=== PATIENT | female | born 1990 | race Caucasian/White ===

== ENCOUNTER 2021-01-02 16:49 | Inpatient (IN) | payer MEDICAID ==
[~2021-01-02] VITALS: Ht 157.5 cm; Wt 73.9 kg
[2021-01-02 18:17] LABS: BASOPHILS % (AUTO) 0.3 % (0.0-2.0); EOSINOPHILS % (AUTO) 0 % (1.0-6.0); HEMOGLOBIN 11.7 g/dL (12.0-16.0); LYMPHOCYTES # (AUTO) 1.5 K/uL (1.0-4.8); LYMPHOCYTES % (AUTO) 12.6 % (22.0-44.0); MEAN CORPUSCULAR HEMOGLOBIN 26.4 pg (26.0-34.0); MEAN CORPUSCULAR HGB CONC 32.5 G/dL (31.0-37.0); MEAN CORPUSCULAR VOLUME 81 fL (80-100); MONOCYTES # (AUTO) 0.9 K/uL (0.1-1.0); MONOCYTES % (AUTO) 7.3 % (2.0-9.0); NEUTROPHILS # (AUTO) 9.7 K/uL (1.8-7.7); NEUTROPHILS % (AUTO) 79.8 % (40.0-70.0); PLATELET COUNT (AUTO) 313 K/uL (150-450); RED BLOOD CELL COUNT(AUTO) 4.43 MIL/uL (4.00-5.20); RED CELL DISTRIBUTION WIDTH 15.8 % (11.5-14.5)
[2021-01-02 18:59] LABS: ANION GAP 19 mmol/L (8-16); CALCIUM, TOTAL 9.1 mg/dL (8.8-10.5); CARBON DIOXIDE 22 mmol/L (22-29); CHLORIDE 103 mmol/L (98-107); CREATININE 0.99 mg/dL (0.60-1.30); GLOMERULAR FILTR. RATE CALC > 60 mL/min (>60); GLUCOSE,RANDOM 96 mg/dL (70-110); POTASSIUM 3.1 mmol/L (3.5-5.1); SODIUM SERUM 144 mmol/L (136-145); UREA NITROGEN, BLOOD 14 mg/dL (7-18)
[2021-01-02 19:10] LABS: ALANINE AMINOTRANSFERASE 95 U/L (12-78); ALBUMIN 3.8 g/dL (3.4-5.0); ALKALINE PHOSPHATASE 58 U/L (46-116); ASPARTATE AMINOTRANSFERASE 142 U/L (15-37); BILIRUBIN,TOTAL 1.7 mg/dL (0.1-1.0); HCG,QUANTITATIVE < 1 mIU/mL (0-6); TOTAL PROTEIN, SERUM 7.5 g/dL (6.4-8.2)
[2021-01-02] MEDS ORDERED: DiphenhydrAMINE HCL 50 MG/ML VIAL IM ONE (19:30)
[2021-01-02] MEDS ORDERED: LORazepam 2 MG/ML VIAL IM ONE (19:30)
[2021-01-02] MEDS ORDERED: POTASSIUM CHLORIDE 20 MEQ ER TABLET PO ONE (19:30)
[2021-01-02] MEDS ORDERED: HALOPERIDOL LACTATE 5 MG/ML VIAL IM ONE (19:30)
[2021-01-02 19:41] LABS: COVID AG,FIA SOURCE NASOPHARYNGEAL
[2021-01-02] MEDS: ZOLPIDEM TARTRATE 10 MG TABLET PO PRN (22:42)
[2021-01-03 05:00] LABS: CHOL/HDL RATIO 2.7 (3.9-5.7)
[2021-01-03] MEDS: ACETAMINOPHEN 325 MG TABLET PO PRN (12:01)
[2021-01-03 14:32] VITALS: BP 142/84
[2021-01-03 16:26] VITALS: BP 96/60
[2021-01-04 00:10] VITALS: BP 101/65
[2021-01-04] MEDS ORDERED: GuaiFENesin/D-METHORPHAN [SUGAR-FREE] 200-20MG/10 ML SYRUP UDCUP PO PRN (08:15)
[2021-01-04] MEDS ORDERED: ALBUTEROL SULFATE HFA 90 MCG/PUFF 8 GM INHALER IH PRN (08:15)
[2021-01-04] MEDS ORDERED: MAGNESIUM HYDROXIDE SUSPENSION 30 ML UDCUP PO PRN (08:15)
[2021-01-04] MEDS ORDERED: DOCUSATE SODIUM 100 MG CAPSULE PO PRN (08:15)
[2021-01-04] MEDS ORDERED: NICOTINE 14 MG/24 HOUR PATCH TD PRN (08:15)
[2021-01-04] MEDS ORDERED: ONDANSETRON HCL 4 MG TABLET PO PRN (08:15)
[2021-01-04] MEDS ORDERED: IBUPROFEN 400 MG TABLET PO PRN (08:15)
[2021-01-04] MEDS ORDERED: PETROLATUM,WHITE 28 GM JELLY TP PRN (08:15)
[2021-01-04] MEDS ORDERED: LOPERAMIDE HCL 2 MG CAPSULE PO PRN (08:15)
[2021-01-04] MEDS ORDERED: CloNIDine HCL 0.1 MG TABLET PO PRN (08:15)
[2021-01-04] MEDS ORDERED: ACETAMINOPHEN 325 MG TABLET PO PRN (08:15)
[2021-01-04] MEDS ORDERED: MAG HYDROX/AL HYDROX/SIMETH ES 30 ML SUSPENSION UDCUP PO PRN (08:15)
[2021-01-04 08:24] VITALS: BP 102/66
[2021-01-04] MEDS: QUEtiapine FUMARATE 25 MG TABLET PO SCH (10:49)
[2021-01-04] MEDS: QUEtiapine FUMARATE 100 MG TABLET PO SCH (20:43)
[2021-01-05 00:53] VITALS: BP 100/64
[2021-01-05 08:22] VITALS: BP 100/64
[2021-01-05] MEDS: QUEtiapine FUMARATE 25 MG TABLET PO SCH (08:52)
[2021-01-05] MEDS: LORazepam 2 MG TABLET PO PRN ×2 (08:55→16:49)
[2021-01-05 16:36] VITALS: BP 123/59
[2021-01-05] MEDS: QUEtiapine FUMARATE 100 MG TABLET PO SCH (20:44)
[2021-01-06 01:46] VITALS: BP 120/63
[2021-01-06] MEDS: LORazepam 2 MG TABLET PO PRN ×2 (08:27→16:24)
[2021-01-06] MEDS: QUEtiapine FUMARATE 25 MG TABLET PO SCH (08:27)
[2021-01-06] MEDS: HALOPERIDOL 5 MG TABLET PO PRN (16:24)
[2021-01-06 16:31] VITALS: BP 104/76
[2021-01-06] MEDS: ZOLPIDEM TARTRATE 10 MG TABLET PO PRN (20:03)
[2021-01-06] MEDS: QUEtiapine FUMARATE 100 MG TABLET PO SCH (20:03)
[2021-01-07 06:14] VITALS: BP 103/62
[2021-01-07] MEDS: LORazepam 2 MG TABLET PO PRN ×2 (08:23→16:13)
[2021-01-07] MEDS: QUEtiapine FUMARATE 25 MG TABLET PO SCH (08:23)
[2021-01-07] MEDS: HALOPERIDOL 5 MG TABLET PO PRN (16:13)
[2021-01-07 16:32] VITALS: BP 102/62
[2021-01-07] MEDS: QUEtiapine FUMARATE 100 MG TABLET PO SCH (20:16)
[2021-01-08 00:48] VITALS: BP 112/68
[2021-01-08] MEDS: LORazepam 2 MG TABLET PO PRN ×2 (08:01→15:56)
[2021-01-08] MEDS: QUEtiapine FUMARATE 25 MG TABLET PO SCH (08:01)
[2021-01-08] MEDS: HALOPERIDOL 5 MG TABLET PO PRN (15:56)
[2021-01-08 16:42] VITALS: BP 100/68
[2021-01-08] MEDS: QUEtiapine FUMARATE 100 MG TABLET PO SCH (20:10)
[2021-01-09 00:58] VITALS: BP 104/62
[2021-01-09 08:00] VITALS: BP 111/87
[2021-01-09] MEDS: MULTIVITAMINS WITH MINERALS, THERAPEUTIC TABLET PO SCH (08:28)
[2021-01-09] MEDS: QUEtiapine FUMARATE 25 MG TABLET PO SCH (08:28)
[2021-01-09] MEDS: LORazepam 2 MG TABLET PO PRN ×2 (08:28→14:57)
[2021-01-09] MEDS: HALOPERIDOL 5 MG TABLET PO PRN (14:57)
[2021-01-09] MEDS: ACETAMINOPHEN 325 MG TABLET PO PRN (15:41)
[2021-01-09 16:14] VITALS: BP 111/63
[2021-01-09] MEDS: QUEtiapine FUMARATE 100 MG TABLET PO SCH (20:18)
[2021-01-10 04:39] VITALS: BP 108/66
[2021-01-10] MEDS: QUEtiapine FUMARATE 25 MG TABLET PO SCH (08:16)
[2021-01-10] MEDS: LORazepam 2 MG TABLET PO PRN ×2 (08:16→15:31)
[2021-01-10] MEDS: MULTIVITAMINS WITH MINERALS, THERAPEUTIC TABLET PO SCH (08:16)
[2021-01-10 08:31] VITALS: BP 113/66
[2021-01-10] MEDS: HALOPERIDOL 5 MG TABLET PO PRN (15:31)
[2021-01-10 16:09] VITALS: BP 123/79
[2021-01-10] MEDS: QUEtiapine FUMARATE 100 MG TABLET PO SCH (20:08)
[2021-01-11 00:15] VITALS: BP 122/76
[2021-01-11] MEDS: MULTIVITAMINS WITH MINERALS, THERAPEUTIC TABLET PO SCH (08:06)
[2021-01-11] MEDS: LORazepam 2 MG TABLET PO PRN (08:06)
[2021-01-11] MEDS: QUEtiapine FUMARATE 25 MG TABLET PO SCH (08:06)
[2021-01-11] MEDS ORDERED: QUET100T PO (12:44)
[2021-01-11] MEDS ORDERED: QUET25TA PO (12:44)
== END 2021-01-11 14:47 | disposition home or self-care (01) | DRG 750 ==
LOC: EMS 16:51 → B3A 01-03 12:59
PROVIDERS: ADMIT Psychiatry & Neurology Child & Adolescent Psychiatry; ATTEND Psychiatry & Neurology Child & Adolescent Psychiatry
DX: F20.9 Schizophrenia, unspecified (principal); I95.9 Hypotension, unspecified; D64.9 Anemia, unspecified; Z20.822 Contact with and (suspected) exposure to COVID-19; D72.829 Elevated white blood cell count, unspecified; F41.9 Anxiety disorder, unspecified
CPT/HCPCS: 80053; 84132; 84702; 85025; 87426; 99291; G0480; J1200; J1630; J2060

== ENCOUNTER 2021-03-29 13:35 | Inpatient (IN) | payer MEDICAID ==
[~2021-03-29] VITALS: Ht 160 cm; Wt 70.5 kg
[~2021-03-29 13:35] MED LIST: QUET100T PO; QUET25TA PO
[2021-03-29 14:47] LABS: BASOPHILS % (AUTO) 0.3 % (0.0-2.0); EOSINOPHILS % (AUTO) 1.5 % (1.0-6.0); HEMATOCRIT 36.4 % (36-46); HEMOGLOBIN 12.2 g/dL (12.0-16.0); LYMPHOCYTES # (AUTO) 2.4 K/uL (1.0-4.8); LYMPHOCYTES % (AUTO) 30.8 % (22.0-44.0); MEAN CORPUSCULAR HEMOGLOBIN 27.6 pg (26.0-34.0); MEAN CORPUSCULAR HGB CONC 33.7 G/dL (31.0-37.0); MEAN CORPUSCULAR VOLUME 82 fL (80-100); MONOCYTES # (AUTO) 0.5 K/uL (0.1-1.0); MONOCYTES % (AUTO) 6.5 % (2.0-9.0); NEUTROPHILS # (AUTO) 4.8 K/uL (1.8-7.7); NEUTROPHILS % (AUTO) 60.9 % (40.0-70.0); PLATELET COUNT (AUTO) 305 K/uL (150-450); RED BLOOD CELL COUNT(AUTO) 4.43 MIL/uL (4.00-5.20); RED CELL DISTRIBUTION WIDTH 15.8 % (11.5-14.5)
[2021-03-29 15:08] LABS: ALANINE AMINOTRANSFERASE 23 U/L (12-78); ALBUMIN 2.8 g/dL (3.4-5.0); ALKALINE PHOSPHATASE 61 U/L (46-116); ANION GAP 7 mmol/L (8-16); ASPARTATE AMINOTRANSFERASE 14 U/L (15-37); BILIRUBIN,TOTAL 0.9 mg/dL (0.1-1.0); CARBON DIOXIDE 27 mmol/L (22-29); CHLORIDE 104 mmol/L (98-107); CREATININE 0.86 mg/dL (0.60-1.30); GLOMERULAR FILTR. RATE CALC > 60 mL/min (>60); GLUCOSE,RANDOM 87 mg/dL (70-110); HCG,QUANTITATIVE < 1 mIU/mL (0-6); SODIUM SERUM 138 mmol/L (136-145); TOTAL PROTEIN, SERUM 6.8 g/dL (6.4-8.2); UREA NITROGEN, BLOOD 6 mg/dL (7-18)
[2021-03-29 15:10] LABS: POTASSIUM 2.8 mmol/L (3.5-5.1)
[2021-03-29] MEDS ORDERED: POTASSIUM CHLORIDE 20 MEQ ER TABLET PO ONE (15:15)
[2021-03-29] MEDS ORDERED: MAGNESIUM CHLORIDE 64 MG ER TABLET PO ONE (15:15)
[2021-03-29] MEDS ORDERED: LOPERAMIDE HCL 2 MG CAPSULE PO PRN (16:00)
[2021-03-29] MEDS ORDERED: MAGNESIUM HYDROXIDE SUSPENSION 30 ML UDCUP PO PRN (16:00)
[2021-03-29] MEDS ORDERED: ACETAMINOPHEN 325 MG TABLET PO PRN (16:00)
[2021-03-29] MEDS ORDERED: OLANZapine 5 MG RAPDIS TABLET PO PRN (16:00)
[2021-03-29] MEDS ORDERED: MAG HYDROX/AL HYDROX/SIMETH ES 30 ML SUSPENSION UDCUP PO PRN (16:00)
[2021-03-29] MEDS ORDERED: ZOLPIDEM TARTRATE 10 MG TABLET PO PRN (16:00)
[2021-03-29 19:14] LABS: COVID AG,FIA SOURCE NASOPHARYNGEAL
[2021-03-29] MEDS: MELATONIN 5 MG TABLET PO SCH (21:00)
[2021-03-29] MEDS: OLANZapine 5 MG RAPDIS TABLET PO SCH (21:00)
[2021-03-29] MEDS ORDERED: HydrOXYzine PAMOATE 50 MG CAPSULE PO PRN (21:30)
[2021-03-29] MEDS ORDERED: GuaiFENesin/D-METHORPHAN [SUGAR-FREE] 200-20MG/10 ML SYRUP UDCUP PO PRN (21:30)
[2021-03-30] MEDS: FOLIC ACID 1 MG TABLET PO SCH (08:54)
[2021-03-30] MEDS: MULTIVITAMINS WITH MINERALS, THERAPEUTIC TABLET PO SCH (08:54)
[2021-03-30] MEDS: NALTREXONE HCL 50 MG TABLET PO SCH (08:54)
[2021-03-30] MEDS: OMEGA-3/DHA/EPA/FISH OIL 1,000 MG CAPSULE PO SCH (08:54)
[2021-03-30] MEDS: THIAMINE 100 MG TABLET PO SCH ×2 (08:54→17:15)
[2021-03-30] MEDS: LORazepam 2 MG TABLET PO PRN ×2 (08:55→17:15)
[2021-03-30] MEDS: OLANZapine 5 MG RAPDIS TABLET PO SCH (20:51)
[2021-03-30] MEDS: MELATONIN 5 MG TABLET PO SCH (20:51)
[2021-03-31 08:14] VITALS: BP 119/81
[2021-03-31] MEDS: MULTIVITAMINS WITH MINERALS, THERAPEUTIC TABLET PO SCH (09:17)
[2021-03-31] MEDS: OMEGA-3/DHA/EPA/FISH OIL 1,000 MG CAPSULE PO SCH (09:17)
[2021-03-31] MEDS: FOLIC ACID 1 MG TABLET PO SCH (09:17)
[2021-03-31] MEDS: THIAMINE 100 MG TABLET PO SCH ×2 (09:17→17:00)
[2021-03-31] MEDS: NALTREXONE HCL 50 MG TABLET PO SCH (09:17)
[2021-03-31] MEDS: LORazepam 2 MG TABLET PO PRN ×2 (09:23→17:00)
[2021-03-31 16:05] VITALS: BP 124/62
[2021-03-31] MEDS: OLANZapine 10 MG RAPDIS TABLET PO SCH (20:37)
[2021-03-31] MEDS: MELATONIN 5 MG TABLET PO SCH (20:37)
[2021-03-31 21:57] VITALS: BP 117/67
[2021-04-01 07:12] VITALS: BP 124/62
[2021-04-01] MEDS: OMEGA-3/DHA/EPA/FISH OIL 1,000 MG CAPSULE PO SCH (09:17)
[2021-04-01] MEDS: FOLIC ACID 1 MG TABLET PO SCH (09:17)
[2021-04-01] MEDS: MULTIVITAMINS WITH MINERALS, THERAPEUTIC TABLET PO SCH (09:17)
[2021-04-01] MEDS: DOXYCYCLINE HYCLATE 100 MG TABLET PO SCH ×2 (09:17→16:23)
[2021-04-01] MEDS: LORazepam 2 MG TABLET PO PRN ×2 (09:18→16:24)
[2021-04-01] MEDS: THIAMINE 100 MG TABLET PO SCH ×2 (09:18→16:23)
[2021-04-01] MEDS: NALTREXONE HCL 50 MG TABLET PO SCH (09:18)
[2021-04-01 16:11] VITALS: BP 119/65
[2021-04-01] MEDS: OLANZapine 10 MG RAPDIS TABLET PO SCH (20:11)
[2021-04-01] MEDS: DIVALPROEX SODIUM 250 MG ER TABLET PO SCH (20:11)
[2021-04-01] MEDS: MELATONIN 5 MG TABLET PO SCH (20:11)
[2021-04-02 01:40] VITALS: BP 122/64
[2021-04-02] MEDS: THIAMINE 100 MG TABLET PO SCH ×2 (08:12→16:35)
[2021-04-02] MEDS: FOLIC ACID 1 MG TABLET PO SCH (08:12)
[2021-04-02] MEDS: NALTREXONE HCL 50 MG TABLET PO SCH (08:13)
[2021-04-02] MEDS: DOXYCYCLINE HYCLATE 100 MG TABLET PO SCH ×2 (08:13→16:35)
[2021-04-02] MEDS: MULTIVITAMINS WITH MINERALS, THERAPEUTIC TABLET PO SCH (08:13)
[2021-04-02] MEDS: LORazepam 2 MG TABLET PO PRN ×2 (08:13→16:35)
[2021-04-02] MEDS: OMEGA-3/DHA/EPA/FISH OIL 1,000 MG CAPSULE PO SCH (08:50)
[2021-04-02 10:48] VITALS: BP 121/62
[2021-04-02] MEDS: MELATONIN 5 MG TABLET PO SCH (20:51)
[2021-04-02] MEDS: OLANZapine 10 MG RAPDIS TABLET PO SCH (20:51)
[2021-04-02] MEDS: DIVALPROEX SODIUM 250 MG ER TABLET PO SCH (20:51)
[2021-04-03] MEDS: MULTIVITAMINS WITH MINERALS, THERAPEUTIC TABLET PO SCH (08:00)
[2021-04-03] MEDS: OMEGA-3/DHA/EPA/FISH OIL 1,000 MG CAPSULE PO SCH (09:08)
[2021-04-03] MEDS: FLUoxetine HCL 20 MG CAPSULE PO SCH (09:08)
[2021-04-03] MEDS: LORazepam 2 MG TABLET PO PRN (09:08)
[2021-04-03] MEDS: THIAMINE 100 MG TABLET PO SCH ×2 (09:08→16:43)
[2021-04-03] MEDS: NALTREXONE HCL 50 MG TABLET PO SCH (09:08)
[2021-04-03] MEDS: FOLIC ACID 1 MG TABLET PO SCH (09:08)
[2021-04-03] MEDS: DOXYCYCLINE HYCLATE 100 MG TABLET PO SCH ×2 (10:00→16:43)
[2021-04-03] MEDS: DIVALPROEX SODIUM 250 MG ER TABLET PO SCH (20:29)
[2021-04-03] MEDS: MELATONIN 5 MG TABLET PO SCH (20:29)
[2021-04-03] MEDS: OLANZapine 10 MG RAPDIS TABLET PO SCH (20:29)
[2021-04-04] MEDS: FOLIC ACID 1 MG TABLET PO SCH (08:25)
[2021-04-04] MEDS: NALTREXONE HCL 50 MG TABLET PO SCH (08:25)
[2021-04-04] MEDS: THIAMINE 100 MG TABLET PO SCH ×2 (08:25→16:49)
[2021-04-04] MEDS: FLUoxetine HCL 20 MG CAPSULE PO SCH (08:25)
[2021-04-04] MEDS: OMEGA-3/DHA/EPA/FISH OIL 1,000 MG CAPSULE PO SCH (08:25)
[2021-04-04] MEDS: MULTIVITAMINS WITH MINERALS, THERAPEUTIC TABLET PO SCH (08:25)
[2021-04-04] MEDS: LORazepam 2 MG TABLET PO PRN (08:25)
[2021-04-04] MEDS: DOXYCYCLINE HYCLATE 100 MG TABLET PO SCH ×2 (10:10→16:49)
[2021-04-04 16:17] VITALS: BP 125/74
[2021-04-04] MEDS: MELATONIN 5 MG TABLET PO SCH (20:14)
[2021-04-04] MEDS: DIVALPROEX SODIUM 250 MG ER TABLET PO SCH (20:14)
[2021-04-04] MEDS: OLANZapine 10 MG RAPDIS TABLET PO SCH (20:14)
[2021-04-05 05:50] VITALS: BP 128/66
[2021-04-05] MEDS: DOXYCYCLINE HYCLATE 100 MG TABLET PO SCH ×2 (09:04→16:09)
[2021-04-05] MEDS: FOLIC ACID 1 MG TABLET PO SCH (09:04)
[2021-04-05] MEDS: MULTIVITAMINS WITH MINERALS, THERAPEUTIC TABLET PO SCH (09:04)
[2021-04-05] MEDS: OMEGA-3/DHA/EPA/FISH OIL 1,000 MG CAPSULE PO SCH (09:04)
[2021-04-05] MEDS: FLUoxetine HCL 20 MG CAPSULE PO SCH (09:05)
[2021-04-05] MEDS: THIAMINE 100 MG TABLET PO SCH ×2 (09:05→16:09)
[2021-04-05] MEDS: NALTREXONE HCL 50 MG TABLET PO SCH (09:05)
[2021-04-05] MEDS: LORazepam 2 MG TABLET PO PRN ×2 (09:06→16:09)
[2021-04-05] MEDS: MELATONIN 5 MG TABLET PO SCH (20:21)
[2021-04-05] MEDS: DIVALPROEX SODIUM 250 MG ER TABLET PO SCH (20:21)
[2021-04-05] MEDS: OLANZapine 10 MG RAPDIS TABLET PO SCH (20:21)
[2021-04-06 03:41] VITALS: BP 124/82
[2021-04-06] MEDS: OMEGA-3/DHA/EPA/FISH OIL 1,000 MG CAPSULE PO SCH (08:22)
[2021-04-06] MEDS: FLUoxetine HCL 20 MG CAPSULE PO SCH (08:22)
[2021-04-06] MEDS: NALTREXONE HCL 50 MG TABLET PO SCH (08:22)
[2021-04-06] MEDS: MULTIVITAMINS WITH MINERALS, THERAPEUTIC TABLET PO SCH (08:22)
[2021-04-06] MEDS: FOLIC ACID 1 MG TABLET PO SCH (08:22)
[2021-04-06] MEDS: DOXYCYCLINE HYCLATE 100 MG TABLET PO SCH ×2 (08:22→16:16)
[2021-04-06] MEDS: THIAMINE 100 MG TABLET PO SCH ×2 (08:23→16:16)
[2021-04-06] MEDS: LORazepam 2 MG TABLET PO PRN (08:23)
[2021-04-06 08:24] VITALS: BP 113/66
[2021-04-06] MEDS ORDERED: BuPROPion HCL XL 150 MG ER TABLET PO SCH (09:00)
[2021-04-06 16:39] VITALS: BP 108/71
[2021-04-06] MEDS: OLANZapine 10 MG RAPDIS TABLET PO SCH (20:18)
[2021-04-06] MEDS: MELATONIN 5 MG TABLET PO SCH (20:18)
[2021-04-06] MEDS: DIVALPROEX SODIUM 250 MG ER TABLET PO SCH (20:19)
[2021-04-07 06:08] VITALS: BP 118/72
[2021-04-07] MEDS: OMEGA-3/DHA/EPA/FISH OIL 1,000 MG CAPSULE PO SCH (08:55)
[2021-04-07] MEDS: THIAMINE 100 MG TABLET PO SCH ×2 (08:56→16:20)
[2021-04-07] MEDS: MULTIVITAMINS WITH MINERALS, THERAPEUTIC TABLET PO SCH (08:56)
[2021-04-07] MEDS: FOLIC ACID 1 MG TABLET PO SCH (08:56)
[2021-04-07] MEDS: DOXYCYCLINE HYCLATE 100 MG TABLET PO SCH ×2 (08:56→16:20)
[2021-04-07] MEDS: LORazepam 2 MG TABLET PO PRN (08:56)
[2021-04-07] MEDS: FLUoxetine HCL 20 MG CAPSULE PO SCH (08:56)
[2021-04-07] MEDS: NALTREXONE HCL 50 MG TABLET PO SCH (08:56)
[2021-04-07] MEDS: BuPROPion HCL XL 150 MG ER TABLET PO SCH (08:57)
[2021-04-07] MEDS ORDERED: BUPR-49 PO (16:16)
[2021-04-07] MEDS ORDERED: FLUO20CA36 PO (16:16)
[2021-04-07] MEDS ORDERED: OLAN10TA26 PO (16:16)
[2021-04-07] MEDS ORDERED: NALT50TA PO (16:16)
[2021-04-07] MEDS ORDERED: MELA5TAB3 PO (16:16)
[2021-04-07] MEDS ORDERED: OMEG-135 PO (16:16)
[2021-04-07] MEDS ORDERED: DIVA-85 PO (16:16)
[2021-04-07] MEDS: OLANZapine 10 MG RAPDIS TABLET PO SCH (20:44)
[2021-04-07] MEDS: DIVALPROEX SODIUM 250 MG ER TABLET PO SCH (20:44)
[2021-04-07] MEDS: MELATONIN 5 MG TABLET PO SCH (20:58)
[2021-04-07] MEDS ORDERED: PALIPERIDONE PALMITATE 234 MG/1.5 ML SYRINGE IM ONE (21:00)
[2021-04-08] MEDS: FLUoxetine HCL 20 MG CAPSULE PO SCH (09:38)
[2021-04-08] MEDS: MULTIVITAMINS WITH MINERALS, THERAPEUTIC TABLET PO SCH (09:38)
[2021-04-08] MEDS: BuPROPion HCL XL 150 MG ER TABLET PO SCH (09:38)
[2021-04-08] MEDS: FOLIC ACID 1 MG TABLET PO SCH (09:38)
[2021-04-08] MEDS: DOXYCYCLINE HYCLATE 100 MG TABLET PO SCH (09:39)
[2021-04-08] MEDS: THIAMINE 100 MG TABLET PO SCH (09:39)
[2021-04-08] MEDS: NALTREXONE HCL 50 MG TABLET PO SCH (09:39)
[2021-04-08] MEDS: OMEGA-3/DHA/EPA/FISH OIL 1,000 MG CAPSULE PO SCH (09:40)
[2021-05-05] MEDS ORDERED: PALIPERIDONE PALMITATE 117 MG/0.75 ML SYRINGE IM SCH (09:00)
== END 2021-04-08 14:20 | disposition home or self-care (01) | DRG 750 ==
LOC: EMS 13:37 → B3A 19:00
PROVIDERS: ADMIT Psychiatry & Neurology Psychiatry; ATTEND Psychiatry & Neurology Psychiatry
DX: F25.9 Schizoaffective disorder, unspecified (principal); Z91.19 Patient's noncompliance with other medical treatment and regimen; E87.6 Hypokalemia; F17.210 Nicotine dependence, cigarettes, uncomplicated; F41.9 Anxiety disorder, unspecified; J44.9 Chronic obstructive pulmonary disease, unspecified; Z20.822 Contact with and (suspected) exposure to COVID-19; Z55.9 Problems related to education and literacy, unspecified; Z59.9 Problem related to housing and economic circumstances, unspecified; Z65.3 Problems related to other legal circumstances
CPT/HCPCS: 80053; 83735; 84702; 85025; 99285; A9575; G0480